=== PATIENT | female | born 1940 | race Caucasian/White ===

== ENCOUNTER 2016-06-18 23:45 | Inpatient (IN) | payer OTHER ==
[~2016-06-18] VITALS: Ht 167.6 cm; Wt 93.0 kg
[2016-06-19 00:37] LABS: BASOPHIL % 0.5 % (0-2); PLATELET COUNT 310 x10^3mcL (130-400); RED CELL DISTRIBUTION WIDTH 13.4 % (11.5-14.5)
[2016-06-19 00:55] LABS: CALCIUM 8.7 mg/dL (8.5-10.1); CARBON DIOXIDE 28.9 mmol/L (21-32); CHLORIDE SERUM 106 mmol/L (98-107); GLUCOSE SERUM 174 mg/dL (74-106); POTASSIUM SERUM 3.9 mmol/L (3.5-5.1); SODIUM SERUM 142 mmol/L (136-145)
[2016-06-19 00:58] LABS: ALBUMIN 3.5 g/dL (3.4-5.0); ALKALINE PHOSPHATASE 91 U/L (46-116); ALT/SGPT 20 U/L (14-59); AST/SGOT 13 U/L (15-37); BILIRUBIN TOTAL 0.3 mg/dL (0.20-1.00); CHOLESTEROL 152 mg/dL (<200); HDL CHOLESTEROL 40 mg/dL (40-60); MAGNESIUM 1.8 mg/dL (1.8-2.4); TOTAL PROTEIN, SERUM 7.2 g/dL (6.4-8.2)
--- NOTE | 2016-06-19 01:07 | NUR ---
PATIENT SEEN WITH C/O OF DIZZINESS AND UNCONTROLL BODY MOVEMENT. PATIENT WAS SEEN BY MD. SALINE LOCK INSERTED. PATIENT WAS PUT ON THE SUPERVISOR [employer]. VITAL SIGNS RE-CHECK.
[2016-06-19] MEDS ORDERED: LASIX20 MG PO (01:08)
[2016-06-19] MEDS ORDERED: NOR5 PO (01:09)
[2016-06-19] MEDS ORDERED: BENAZEPRIL HYDR20 M1 PO (01:09)
[2016-06-19] MEDS ORDERED: ASPIR 8181 MG PO (01:10)
[2016-06-19] MEDS ORDERED: GABAPENTIN400 M1 PO (01:10)
--- NOTE | 2016-06-19 02:29 | NUR ---
PATIENT IS ADMITTED TO THE HOSPITAL, MRSA SWAB WAS DONE.REPORT WAS GIVEN TORACHEL. PATIENT TRANSPORTED TO ROOM 218B.
[2016-06-19 02:57] VITALS: BP 132/56
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
--- NOTE | 2016-06-19 03:59 | NUR ---
PATIENT IN BED AT THIS TIME. DENIES ANY SOB, NO HEADACHE OR DIZZINESS. CALL LIGHT WITHIN REACH.
[2016-06-19 05:06] LABS: CHOLESTEROL/HDL RATIO 3.8
[2016-06-19 05:13] LABS: FREE T4 1.24 ng/dL (0.76-1.46); FREE THYROXINE INDEX 2.9 ug/dL (1.4-4.5); T4(THYROXINE) 9.2 ug/dL (4.7-13.3)
[2016-06-19 06:45] VITALS: BP 129/64
--- NOTE | 2016-06-19 07:12 | NUR ---
PT RECEIVED DURING CHANGE OF SHIFT, PT ASLEEP, WILL RETURN TO ASSESS, CALL LIGHT WITHIN REACH, WILL CONTINUE TO MONITOR.
--- NOTE | 2016-06-19 07:54 | NUR ---
PT A/OX4, DENIES H/A, DENIES DIZZINESS, OBEYS COMMANDS, SPEACH CLEAR, TELE 28, NSR, DENIES CHEST PAIN, PULSES PRESENT NO EDEMA NOTED, LUNGS DIM ON RA, DENIES SOB, BREATHING EVEN AND UNLABORED, LBM 06/19/16, LBM FORMED, PT ABLE TO VOID, GENERALIZED WEAKNESS, LIMITED ROM IN RT ARM, C/O BURNING IN RT ARM 09/23, SKIN WARM DRY INTACT, IV TO LFA INFUSING NS AT 50ML/HR, CALL LIGHT WITHIN REACH, WILL CONTINUE TO MONITOR.
[2016-06-19 08:30] VITALS: BP 140/76
--- NOTE | 2016-06-19 08:38 | NUR ---
PT DENIES SOB, PT C/O BURNING PAIN 09/23 IN RT ARM, MEDICATED PER EMAR, CALL LIGHT WITHIN REACH, WILL CONTINUE TO MONITOR.
[2016-06-19 09:19] LABS: T3 TOTAL 1.34 ng/mL
--- NOTE | 2016-06-19 10:14 | NUR ---
PT IN RESTROOM, DAUGHTER AT BEDSIDE, DAUGHTER EDUCATED ON USE OF CALL LIGHT, CALL LIGHT WITHIN REACH, WILL CONTINUE TO MONITOR.
--- NOTE | 2016-06-19 11:35 | NUR ---
PT DENIES SOB, PT STATES PAIN IS TOLERABLE AT 5/10, REQUESTING TO TAKE SCHEDULED GABAPENTIN DURING OR AFTER LUNCH, VISITORS AT BEDSIDE, CALL LIGHT WITHIN REACH, WILL CONTINUE TO MONITOR.
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
--- NOTE | 2016-06-19 12:38 | NUR ---
PT DENIES SOB, STATES PAIN ONLY PRESENT IN RT ARM UPON MOVEMENT, VISITORS AT BEDSIDE ASSISTING WITH LUNCH, CALL LIGHT WITHIN REACH, WILL CONTINUE TO MONITOR.
[2016-06-19 12:57] VITALS: BP 109/64; BP 109/66
--- NOTE | 2016-06-19 13:08 | NUR ---
PT DENIES SOB, CURRENTLY DENIES PAIN, STATED SHE AT WELL, VISITOR AT BEDSIDE, CALL LIGHT WITHIN REACH, WILL CONTINUE TO MONITOR.
--- NOTE | 2016-06-19 14:10 | NUR ---
PT ASLEEP, NO INDICATION OF PAIN, BREATHING EVEN AND UNLABORED, DAUGHTER AT BEDSIDE, CALL LIGHT WITHIN REACH, WILL CONTINUE TO MONITOR.
--- NOTE | 2016-06-19 15:03 | NUR ---
PT AMBULATING HALLWAY WITH DAUGHTER, DENIES SOB, DENIES PAIN, PT AND DAUGHTER AWARE TO NOTIFY STAFF IF NOT FEELING WELL.
--- NOTE | 2016-06-19 16:15 | NUR ---
PT DENIES SOB, DENIES PAIN, STATES PAIN ONLY PRESENT IN RT ARM UPON MOVEMENT, CALL LIGHT WITHIN REACH, DAUGHTER AT BEDSIDE, WILL CONTINUE TO MONITOR.
[2016-06-19 16:56] VITALS: BP 109/57
--- NOTE | 2016-06-19 17:22 | NUR ---
PT DENIES SOB, PT STATES PAIN IS CAUSED UPON MOVEMENT, DAUGHTER AT BEDSIDE, CALL LIGHT WITHIN REACH, WILL CONTINUE TO MONITOR.
--- NOTE | 2016-06-19 18:17 | NUR ---
PT DENIES SOB, DENIES PAIN, VISITORS AT BEDSIDE, CALL LIGHT WITHIN REACH, WILL ENDORSE PT TO NEXT SHIFT.
--- NOTE | 2016-06-19 19:40 | NUR ---
RECEIVED PT FROM AM SWETA STEIN. PATIENT QUIETLY RESTING IN BED AT THIS TIME. FAMILY BY BEDSIDE, DAUGHTER CRISTY STATED THAT SHE WOULD LIKE TO SPEAK TO DR. MEDRANO. INFORMED DR. MEDRANO AND DR. MEDRANO IN TO SEE PATIENT AND FAMILY MEMBERS TO DISCUSS PATIENT'S PLAN OF CARE AND OTHER CONCERNS. CALL LIGHT WITHIN REACH AND UA COLLECTED AND SENT DOWNSTAIRS.
[2016-06-19 20:23] LABS: microscopic required? NO
[2016-06-19 20:35] LABS: urine erythrocyte NEGATIVE (NEGATIVE)
[2016-06-19 20:43] LABS: AMPHETAMINE QUAL UR NONE DETECTED (NEG <=1000)
--- NOTE | 2016-06-19 21:00 | NUR ---
SCHEDULED MEDICATIONS ADMINISTERED. NO SWALLOWING DIFFICULTY. CALL LIGHT WITHIN REACH AND ALL SAFETY MEASURES IN PLACE.
[2016-06-19 22:31] VITALS: BP 130/69
[2016-06-20 06:34] VITALS: BP 152/87
[2016-06-20 06:49] LABS: BASOPHIL % 0.2 % (0-2); PLATELET COUNT 329 x10^3mcL (130-400); RED CELL DISTRIBUTION WIDTH 13.3 % (11.5-14.5)
[2016-06-20 06:52] LABS: CALCIUM 8.9 mg/dL (8.5-10.1); CARBON DIOXIDE 26.1 mmol/L (21-32); CHLORIDE SERUM 107 mmol/L (98-107); CREATININE SERUM 0.7 mg/dL (0.6-1.0); GLUCOSE SERUM 125 mg/dL (74-106); MAGNESIUM 1.9 mg/dL (1.8-2.4); PHOSPHOROUS 2.8 mg/dL (2.5-4.9); POTASSIUM SERUM 4.4 mmol/L (3.5-5.1); SODIUM SERUM 142 mmol/L (136-145)
--- NOTE | 2016-06-20 06:59 | NUR ---
K-PAD PLACED TO PATIENT'S RIGHT ARM.
--- NOTE | 2016-06-20 07:51 | NUR ---
PT RECEIVED DURING CHANGE OF SHIFT, A/OX4, DENIES DIZZINESS, DENIES H/A, TELE 28, DENIES CHEST PAIN, PULSES PRESENT NO EDEMA, LUNGS DIMINISHED BILATERALLY, DENIES SOB, BREATHING EVEN AND UNLABORED, BOWEL SOUNDS ACTIVE, PT ABLE TO VOID, MILD GENERALIZED WEAKNESS, SKIN WARM DRY INTACT, PT C/O PAIN 2/10 IN RUE, PT STATES PAIN IS TOLERABLE, WEAK MOTOR GRADER ROUGH GRADE STRENGTH FROM RT HAND, PT ABLE TO OBEY COMMANDS, SPEECH CLEAR, C/O INABILITY TO SLEEP LAST NIGHT, REQUESTED NEW ROOM, IV IN LFA INFUSING NS AT 50ML/HR, CALM AND COOPERATIVE, CALL LIGHT WITHIN REACH, WILL CONTINUE TO MONITOR.
--- NOTE | 2016-06-20 09:11 | NUR ---
PT DENIES SOB, PT C/O RT ARM PAIN 5/10, MEDICATED PER EMAR, CALL LIGHT WITHIN REACH, WILL CONTINUE TO MONITOR.
[2016-06-20 09:52] VITALS: BP 127/71
--- NOTE | 2016-06-20 10:22 | NUR ---
PT DENIES SOB, DENIES PAIN AT THIS TIME, PT STATES SHE FEELS "TIRED" AND DID NOT SLEEP WELL LAST NIGHT, CALL LIGHT WITHIN REACH, DAUGHTER AT BEDSIDE, WILL CONTINUE TO MONITOR.
[2016-06-20 11:20] VITALS: BP 127/71
--- NOTE | 2016-06-20 11:21 | NUR ---
PT ASLEEP, NO INDICATION OF PAIN, BREATHING EVEN AND UNLABORED, DAUGHTER AT BEDSIDE, CALL LIGHT WITHIN REACH, WILL CONTINUE TO MONITOR.
--- NOTE | 2016-06-20 12:16 | NUR ---
PT DENIES SOB, C/O 1010 PAIN IN RT ARM, RECEIVED SCHEDULED MED, PT TOLD TO NOTIFY RN IF PAIN CONTINUE, CALL LIGHT WITHIN REACH, VISITORS AT BEDSIDE, WILL CONTINUE TO MONITOR.
[2016-06-20 12:33] VITALS: BP 127/78
--- NOTE | 2016-06-20 13:03 | NUR ---
PT DENIES SOB, DENIES PAIN, AT 80% OF LUNCH, CALL LIGHT WITHIN REACH, WILL CONTINUE TO MONITOR.
[2016-06-20 13:26] VITALS: BP 135/85
[2016-06-20] MEDS ORDERED: GABAPENTIN600 M1 PO (13:54)
[2016-06-20] MEDS ORDERED: NOR10T PO (13:59)
[2016-06-20] MEDS ORDERED: COL100 PO (13:59)
--- NOTE | 2016-06-20 14:25 | NUR ---
PT AWARE THAT DISCHARGE PAPERWORK WILL BE COMPLETED SOON.
--- NOTE | 2016-06-20 15:05 | NUR ---
PT AND DAUGHTER RECEIVED DISCHARGE INSTRUCTIONS, VERBALIZED UNDERSTANDING, SCRIPTS GIVEN, PT NOTIFIED OF E-PRESCRIPTIONS, IV DC'D CATHETER INTACT, ARMBANDS DC'D, TELE DC'D AND RETURNED, PT AND DAUGHTER ESCORTED DOWNSTAIRS BY RN.
== END 2016-06-20 15:10 | disposition home or self-care (01) | DRG 312 ==
LOC: ED 23:45 → DU 06-19 02:14
PROVIDERS: Emergency Medicine; ADMIT Family Medicine
DX: R55 Syncope and collapse (principal); H40.9 Unspecified glaucoma; I10 Essential (primary) hypertension; M25.511 Pain in right shoulder; R05 Cough; T46.4X5A Adverse effect of angiotensin-converting-enzyme inhibitors, initial encounter; Y92.018 Other place in single-family (private) house as the place of occurrence of the external cause; Z79.82 Long term (current) use of aspirin; Z68.33 Body mass index [BMI] 33.0-33.9, adult
CPT/HCPCS: 80307; 83880; 84439; G0480; J7030; Q0092

== ENCOUNTER 2016-08-31 13:48 | Emergency (ER) | payer OTHER ==
[~2016-08-31] VITALS: Ht 167.6 cm; Wt 94.8 kg
[~2016-08-31 13:48] MED LIST: ASPIR 8181 MG PO; BENAZEPRIL HYDR20 M1 PO; COL100 PO; GABAPENTIN400 M1 PO; GABAPENTIN600 M1 PO; LASIX20 MG PO; NOR10T PO; NOR5 PO
[2016-08-31 14:47] VITALS: BP 152/80
== END 2016-08-31 14:47 | disposition home or self-care (01) ==
LOC: ED 13:48
DX: G89.29 Other chronic pain (principal); M79.601 Pain in right arm; I10 Essential (primary) hypertension; Z79.899 Other long term (current) drug therapy
CPT/HCPCS: J1885

== ENCOUNTER 2017-01-17 12:36 | Emergency (ER) | payer OTHER ==
[~2017-01-17] VITALS: Ht 167.6 cm; Wt 95.2 kg
[2017-01-17 14:22] LABS: CALCIUM 9.5 mg/dL (8.5-10.1); CARBON DIOXIDE 30.5 mmol/L (21-32); CHLORIDE SERUM 104 mmol/L (98-107); CREATININE SERUM 0.8 mg/dL (0.6-1.0); GLUCOSE SERUM 120 mg/dL (74-106); POTASSIUM SERUM 4.3 mmol/L (3.5-5.1); SODIUM SERUM 142 mmol/L (136-145)
[2017-01-17 14:26] LABS: ALBUMIN 3.5 g/dL (3.4-5.0); ALKALINE PHOSPHATASE 106 U/L (46-116); ALT/SGPT 21 U/L (14-59); AST/SGOT 15 U/L (15-37); BILIRUBIN TOTAL 0.4 mg/dL (0.20-1.00); CHOLESTEROL 153 mg/dL (<200); HDL CHOLESTEROL 44 mg/dL (40-60); MAGNESIUM 2.2 mg/dL (1.8-2.4); TOTAL PROTEIN, SERUM 7.8 g/dL (6.4-8.2)
[2017-01-17 14:27] LABS: microscopic required? NO
[2017-01-17 14:28] LABS: BASOPHIL % 0.4 % (0-2); PLATELET COUNT 382 x10^3mcL (130-400); RED CELL DISTRIBUTION WIDTH 13.6 % (11.5-14.5)
[2017-01-17 14:45] LABS: urine erythrocyte NEGATIVE (NEGATIVE)
[2017-01-17 15:28] VITALS: BP 135/74
== END 2017-01-17 15:43 | disposition home or self-care (01) ==
LOC: ED 12:36
PROVIDERS: Emergency Medicine
DX: R42 Dizziness and giddiness (principal); I10 Essential (primary) hypertension; H40.9 Unspecified glaucoma; J98.09 Other diseases of bronchus, not elsewhere classified
CPT/HCPCS: 36415; 83880; J8597; Q0092

== ENCOUNTER 2018-07-27 17:56 | Emergency (ER) | payer OTHER, MEDICAID ==
[~2018-07-27] VITALS: Ht 165.1 cm; Wt 95.3 kg
[2018-07-27 18:07] VITALS: Ht 165.1 cm; Wt 95.3 kg
[2018-07-27 19:14] LABS: BASOPHIL % 0.3 % (0-2); PLATELET COUNT 384 x10^3mcL (130-400); RED CELL DISTRIBUTION WIDTH 13.5 % (11.5-14.5)
[2018-07-27 19:24] LABS: CALCIUM 8.8 mg/dL (8.5-10.1); CARBON DIOXIDE 25.8 mmol/L (21-32); CHLORIDE SERUM 107 mmol/L (98-107); CREATININE SERUM 0.7 mg/dL (0.6-1.0); GLUCOSE SERUM 149 mg/dL (74-106); POTASSIUM SERUM 3.9 mmol/L (3.5-5.1); SODIUM SERUM 141 mmol/L (136-145)
[2018-07-27 19:28] LABS: ALBUMIN 3.4 g/dL (3.4-5.0); ALKALINE PHOSPHATASE 105 U/L (46-116); ALT/SGPT 42 U/L (14-59); AST/SGOT 21 U/L (15-37); BILIRUBIN TOTAL 0.3 mg/dL (0.20-1.00); TOTAL PROTEIN, SERUM 7.1 g/dL (6.4-8.2)
[2018-07-27 19:39] LABS: FREE T4 1.37 ng/dL (0.76-1.46); FREE THYROXINE INDEX 2.8 ug/dL (1.4-4.5); T4(THYROXINE) 8.8 ug/dL (4.7-13.3)
[2018-07-27 19:52] LABS: T3 TOTAL 1.1 ng/mL
[2018-07-27 21:55] VITALS: BP 136/67
== END 2018-07-27 21:55 | disposition home or self-care (01) ==
LOC: ED 17:56
PROVIDERS: Emergency Medicine
DX: R53.1 Weakness (principal); G89.29 Other chronic pain; M54.2 Cervicalgia; R42 Dizziness and giddiness; I10 Essential (primary) hypertension
CPT/HCPCS: 36415; 84439; Q0092